=== PATIENT | female | born 1955 | race Caucasian/White ===

== ENCOUNTER 2020-11-04 06:54 | Outpatient (NON) | payer MEDICARE, SELFPAY ==
[2020-11-04 22:15] LABS: SARS-CoV-2 RNA PCR Negative
== END 2020-11-04 06:55 ==
PROVIDERS: Visit Provider Nurse Practitioner
DX: Z20.822 Contact with and (suspected) exposure to COVID-19 (principal)
CPT/HCPCS: C9803; U0003; U0005